=== PATIENT | female | born 1985 | race Two or more races ===

== ENCOUNTER 2022-03-20 06:24 | Day surgery (SDC) | payer OTHER | END 2022-03-20 10:10 | disposition home or self-care (01) | LOC: AMB-ENDOS 06:24 | PROVIDERS: ATTEND Surgery | DX: K21.9 Gastro-esophageal reflux disease without esophagitis (principal); K44.9 Diaphragmatic hernia without obstruction or gangrene; Z20.822 Contact with and (suspected) exposure to COVID-19; E66.01 Morbid (severe) obesity due to excess calories; I10 Essential (primary) hypertension ==

== ENCOUNTER 2023-04-08 06:19 | Day surgery (SDC) | payer OTHER ==
[~2023-04-08] VITALS: Ht 170.2 cm; Wt 75.7 kg
[~2023-04-08 06:19] MED LIST: B12 ACTIVE1000 MCG PO; DAILY MULTIVIT1 EAC4 PO; OSTERA TABLET1 EACH PO; SYNTHROID88 MCG PO
[2023-04-08] MEDS ORDERED: TRAMADOL HCL50 MG PO (10:59)
[2023-04-08] MEDS ORDERED: MIRALAX510 GM PO (11:00)
[2023-04-08] MEDS ORDERED: SURFAK240 M1 PO (11:00)
== END 2023-04-08 15:50 | disposition home or self-care (01) ==
LOC: CIR.AMB 06:19
PROVIDERS: ATTEND Surgery
DX: K80.10 Calculus of gallbladder with chronic cholecystitis without obstruction (principal); K42.9 Umbilical hernia without obstruction or gangrene; K43.2 Incisional hernia without obstruction or gangrene; Z20.822 Contact with and (suspected) exposure to COVID-19; I10 Essential (primary) hypertension